=== PATIENT | male | born 1950 | race Caucasian/White ===

== ENCOUNTER → 2024-01-20 18:00 | Outpatient (REF) | payer MEDICARE, SELFPAY ==
--- NOTE | 2024-01-13 11:13 | PN.DIAED02 ---
Referral
DSME Class Series Code: [id number]
Referred For: Diabetes Self-Management Training
PHI Release Authorization Form Signed: Yes
Demographic
(1) Type 2 diabetes mellitus
Status: Acute Code(s): E11.9 - Type 2 diabetes mellitus without complications
Patient's primary language-: Bulgarian
Education: High school/GED
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
Hours Worked/Week: 20-40 (35)
Shift: Day
- Social
Primary Support Person: Self
Primary Care Takers: Self
Living Arrangements: Self
- Learning Methods
Preferred Method: Reading
Barriers to Learning: Denial of diabetes
Glycemic Control
- Blood Glucose Monitoring Assessment
Date: 01/13/24
Blood glucose monitoring at home: No
Monitor Brands: [employer] (Contour [employer])
Frequency: 2x per day
Time: fasting, after breakfast, after lunch, after dinner
- Hemoglobin A1c
Date: 12/06/23
A1C Percentage (%): 7.3
Medical History of Diabetes
Family Diabetes History: Sibling (sister), Grandmother
Previous visit with Dietitian: No
Complications/Comorbidity/Specialist: Hypertension
Measures
- Anthropometrics
Height: 6 ft 2 in
Actual Weight: 215 lb 4 oz
- Blood Pressure / Pulse
Blood pressure: 128/71
- Diabetes Management
Medical Management for Diabetes: Complete physical exam (07/06/23), Dental exam (11/26/23), Dilated eye exam (03/26/23)
Self-Care
- Tobacco Usage
Do you now, or have you ever smoked?: Quit more than 1 year ago
- Alcohol & Drugs Usage
Drinks Alcohol: Yes
Amount/day: Other (3 drinks/3x/month)
- Meals & Dining
Meals & Dining: Patient skips meals: Yes (discussed)
Primary Food Special Education Teachers: Self
Primary Paver: Self
- Physical Activity
Physical Limitation: No
Patient participates in physical Activity: No
- Patient-Self Assessment
Diabetes Knowledge: Poor
Feelings About Diabetes: Anger
General Health: Good
Importance of Health: Extremely
Stress Level: Low
Barriers to Diabetes Management: Nothing
Depression Survey Score: 0
Care Plan
- Education Needs
Patient Education Needs: Diabetes disease process, Chronic complications, Acute complications, Medication, Monitoring, Physical activity, Psychosocial Adjustment, Nutritional management, Goal setting & problem solving
Recommended Diabetes Training Program based on assessment: Outpatient Diabetes Education Program
- Plan of Care
Plan of Care:
Stafford registering for outpt DSME classes. Most recent A1C 7.3%. Taking Metformin 1000 BID, januvia 50 mg QD and Farxiga 10 mg QD for diabetes, Lisinopril 20 mg and Atorvastatin 40 mg as well. Initial comments regarding diagnosis and classes were his
belief that this 'is all bogus'. Not a new diagnosis, 7 years. Explained the meaning of the A1C which is based on a lab result and that we are here to educate him to hopefully prevent complications. He is not monitoring his BS, provided with and
instructions given on Contour N[employer], set up the juan manuel on his [facility] and able to pair them successfully. This met resistant but he was able to return demonstrate with a result of 153 mg/dl 2 hr post breakfast of raisin bran cereal, and milk.
Testing pattern and expected results handout given as well as the value of monitoring. At one point, he stated 'I just won't eat any carbs'. Explained benefit and moderation is best as well as consuming protein w/meals/snacks. Suggestion given for
proteins and handout on snack options given. He liked this as it explained exactly what to consume. He is most interested in nutrition, informed that he will receive his meal plan, along w/ menu for meal suggestions at the second class. He does cook
for himself, soups,crock pot meals, etc. 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 Goals established, including walking 15 minutes 3 times/week. He is up to date on his eye and dental
exams. Suggest that he contact [facility] to confirm they will cover the cost of classes and to ask what the preferred glucose meter is. To then call his primary for RX for test strips/lancets. Directions to classroom given. Phone number provided for
follow up questions.
--- NOTE | 2024-01-13 11:38 | PN.DIAED04 ---
Education Record
- Education Record
Class Attended: Class 1 (pre registration 01/13/24 for DSME classes starting 01/20/24)
DSME Class Series Code: [id number]
Instructor: Registered Nurse (Sarah Dai, RN, BSN, [facility])
Class Curriculum:
Outpatient Diabetes Education Program:
Initial Assessment (45 minutes)
Individualized assessment
Develop personal strategies to promote health and behavior change
Development of diabetes self-management support plan
Class Length (mins): 120
Pre-Program Knowledge: No knowledge
Pre-Test Score (%): 56
Goals
- Goal 1
Being Active: Exercise 15 minutes-3 times per week (Goal is to walk)
Goals To Be Evaluated: Exercise 15 mins-3x/week
- Goal 2
Healthy Eating: Follow meal plan
Goals To Be Evaluated: Follow meal plan
- Goal 3
Monitoring: Take blood sugar in the prescribed pattern
Goals To Be Evaluated: Test BG-prescribed times
--- NOTE | 2024-01-21 14:18 | PN.DIAED04 ---
Education Record
- Education Record
Class Attended: Class 1
DSME Class Series Code: [id number]
Instructor: Registered Nurse (Sarah Dai, RN, BSN, CDE)
Class Length (mins): 120
Post-Class 1 Test Score (%): 94
--- NOTE | 2024-01-21 14:18 | PN.DIAED14 ---
This is to notify you that your patient with diabetes, MASSIMO WEEMS ( 1950), has enrolled in our diabetes self-management classes that are being held at [facility].
These classes will include an introduction to diabetes, diet, medication, exercise and prevention of complications. At the end of our class series, you will receive a report of your patient's participation and progress for your records.
Please contact me at the Diabetes [facility], , if there is any particular information regarding your patient that might be helpful to me.
Sincerely,
--- NOTE | 2024-01-27 14:15 | PN.DIAED06 ---
Meal Plans - Regular
- Meal Plan
Diabetic Meal Plan Name: 2000 calories
Breakfast - Total Carbohydrate (grams): 45
Breakfast - Starch Carbohydrate: 0
Breakfast - Fruit Carbohydrate: 0
Breakfast - Milk Carbohydrate: 0
Breakfast - Nonstarchy Vegetables: Yes
Breakfast - Meat/Protein: 1
Breakfast - Fat: 2
Morning Snack - Total Carbohydrate (grams): 30
Morning Snack - Starch Carbohydrate: 0
Morning Snack - Fruit Carbohydrate: 0
Morning Snack - Milk Carbohydrate: 0
Morning Snack - Nonstarchy Vegetables: Yes
Morning Snack - Meat/Protein: 0.5
Morning Snack - Fat: 0
Lunch - Total Carbohydrate (grams): 45
Lunch - Starch Carbohydrate: 0
Lunch - Fruit Carbohydrate: 0
Lunch - Milk Carbohydrate: 0
Lunch - Nonstarchy Vegetables: Yes
Lunch - Meat/Protein: 3
Lunch - Fat: 1
Afternoon Snack - Total Carbohydrate (grams): 30
Afternoon Snack - Starch Carbohydrate: 0
Afternoon Snack - Fruit Carbohydrate: 0
Afternoon Snack - Milk Carbohydrate: 0
Afternoon Snack - Nonstarchy Vegetables: Yes
Afternoon Snack - Meat/Protein: 0.5
Afternoon Snack - Fat: 0
Dinner - Total Carbohydrate (grams): 45
Dinner - Starch Carbohydrate: 0
Dinner - Fruit Carbohydrate: 0
Dinner - Milk Carbohydrate: 0
Dinner - Nonstarchy Vegetables: Yes
Dinner - Meat/Protein: 4
Dinner - Fat: 2
Evening Snack - Total Carbohydrate (grams): 15
Evening Snack - Starch Carbohydrate: 0
Evening Snack - Fruit Carbohydrate: 0
Evening Snack - Milk Carbohydrate: 0
Evening Snack - Nonstarchy Vegetables: Yes
Evening Snack - Meat/Protein: 0
Evening Snack - Fat: 0
== END ==
LOC: DES 18:00
PROVIDERS: ATTENDING PHYSICIAN Physician Assistant Medical
DX: E11.9 Type 2 diabetes mellitus without complications (principal)
CPT/HCPCS: 99078

== ENCOUNTER → 2024-01-27 18:00 | Outpatient (REF) | payer MEDICARE, SELFPAY ==
--- NOTE | 2024-01-28 08:44 | PN.DIAED04 ---
Education Record
- Education Record
Class Attended: Class 2
DSME Class Series Code: [id number]
Instructor: Registered Dietitian (Samantha Laurent, RD, LDN, CDE)
Class Length (mins): 120
== END ==
LOC: DES 18:00
PROVIDERS: ATTENDING PHYSICIAN Physician Assistant Medical
DX: E11.9 Type 2 diabetes mellitus without complications (principal)
CPT/HCPCS: 99078

== ENCOUNTER → 2024-02-03 12:00 | Outpatient (REF) | payer MEDICARE, SELFPAY ==
--- NOTE | 2024-02-10 11:04 | PN.DIAED04 ---
Education Record
- Education Record
Class Attended: Class 3
DSME Class Series Code: [id number]
Instructor: Registered Dietitian (Samantha Laurent, RD, LDN, CDE)
Class Length (mins): 120
Post-Class 2 & 3 Test Score (%): 75
== END ==
LOC: DES 12:00
PROVIDERS: ATTENDING PHYSICIAN Physician Assistant Medical
DX: E11.9 Type 2 diabetes mellitus without complications (principal)
CPT/HCPCS: 99078

== ENCOUNTER → 2024-02-17 18:00 | Outpatient (REF) | payer MEDICARE, SELFPAY ==
--- NOTE | 2024-02-19 11:00 | PN.DIAED20 ---
This is to notify you that your patient with diabetes, MASSIMO WEEMS ( 1950), has attended the following Diabetes Self-Management Education Classes.
_X_ Class 1 (120 minutes): Diabetes Overview - monitoring, stress/psychosocial adjustment, support, goal setting
_X_ Class 2 (120 minutes): Meal Planning - serving sizes, menu plans
_X_ Class 3 (120 minutes): Introduction to Carbohydrate Counting, Analyzing Food Labels
___ Class 4 (120 minutes): Medication, Exercise and Activity
_X_ Class 5 (120 minutes): Sick Day Management, Strategies to Reduce Complications, Problem Solving, Resources
The following behavioral goals were identified:
Exercise 15 mins-3x/week
Follow meal plan
Test BG-prescribed times
A follow-up call will be made within three to six months to evaluate attainment of these goals and to check post-program Hemoglobin A1c and overall progress. All class participants are encouraged to contact me if I can be any further assistance in
learning how to manage their diabetes.
Sincerely,
--- NOTE | 2024-02-20 12:49 | PN.DIAED04 ---
Education Record
- Education Record
Class Attended: Class 5
DSME Class Series Code: [id number]
Instructor: Registered Nurse (Sarah Dai, RN, BSN, [facility])
Class Curriculum:
Outpatient Diabetes Education Program:
Class 5 (120 minutes)
Prevent, detect, and treat acute complications
Prevent, detect, and treat chronic complications through risk reduction
Develop personal strategies to address psychosocial issues and concerns
Development of diabetes self-management support plan
Letter to physician with DSMS plan attached sent
Class Length (mins): 120
Post-Program Knowledge: Demonstrates competency
Post-Test Score (%): 80
Post-Program Assessment
- Post-Program Assessment
Actual Weight: 214 lb 4 oz
Blood pressure: 148/81
Post-Program Depression Survey Score: 0
Reviewing Previous Goals?: Yes
Pre-Program Depression Survey Score: 0
- Goals 1 Evaluation
Goals To Be Evaluated: Exercise 15 mins-3x/week
- Goals 2 Evaluation
Goals To Be Evaluated: Follow meal plan
- Goals 3 Evaluation
Goals To Be Evaluated: Test BG-prescribed times
== END ==
LOC: DES 18:00
PROVIDERS: ATTENDING PHYSICIAN Physician Assistant Medical
DX: E11.9 Type 2 diabetes mellitus without complications (principal)
CPT/HCPCS: 99078

== ENCOUNTER → 2025-09-20 07:02 | Outpatient (REF) | payer MEDICARE, SELFPAY | LOC: HWRCS 07:02 | PROVIDERS: ATTENDING PHYSICIAN Internal Medicine Cardiovascular Disease; FAMILY PHYSICIAN Physician Assistant | DX: R01.1 Cardiac murmur, unspecified (principal); I10 Essential (primary) hypertension; E11.9 Type 2 diabetes mellitus without complications | CPT/HCPCS: 93306 ==

== ENCOUNTER → 2025-09-22 06:40 | Outpatient (REF) | payer MEDICARE, SELFPAY | LOC: RAD 06:40 | PROVIDERS: ATTENDING PHYSICIAN Internal Medicine Cardiovascular Disease; FAMILY PHYSICIAN Physician Assistant | DX: R01.1 Cardiac murmur, unspecified (principal) | CPT/HCPCS: 76770; 93880 ==